=== PATIENT | male | born 2000 | race Caucasian/White ===

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

== ENCOUNTER 2020-09-03 22:09 | Inpatient (IN) | payer OTHER ==
[~2020-09-03] VITALS: Ht 175.3 cm; Wt 72.6 kg
[2020-09-03 22:22] VITALS: Ht 175.3 cm; Wt 72.6 kg
--- NOTE | 2020-09-03 23:50 | NUR ---
PT RESPERATIONS ARE SHALLOW WITH MOMENTS OF APNEIC EPISODES. PT MEDICATED PER MD ORDER SEE EMAR.
[2020-09-04 00:14] LABS: BASOPHIL % 0.5 % (0-2); PLATELET COUNT 268 x10^3mcL (130-400); RED CELL DISTRIBUTION WIDTH 14.4 % (11.5-14.5)
[2020-09-04 00:22] LABS: CALCIUM 8.3 mg/dL (8.5-10.1); CARBON DIOXIDE 27.4 mmol/L (21-32); CHLORIDE SERUM 98 mmol/L (98-107); GFR1 > 60 mL/min; GLUCOSE SERUM 101 mg/dL (74-106); POTASSIUM SERUM 3.6 mmol/L (3.5-5.1); SODIUM SERUM 132 mmol/L (136-145)
[2020-09-04 00:31] LABS: ALBUMIN 3.9 g/dL (3.4-5.0); ALKALINE PHOSPHATASE 66 U/L (46-116); ALT/SGPT 66 U/L (16-63); AST/SGOT 26 U/L (15-37); BILIRUBIN TOTAL 0.2 mg/dL (0.20-1.00); TOTAL PROTEIN, SERUM 7.3 g/dL (6.4-8.2)
[2020-09-04] MEDS ORDERED: LEXAPRO5 M1 (01:56)
[2020-09-04 02:44] LABS: AMPHETAMINE QUAL UR NONE DETECTED (See below)
[2020-09-04 03:03] VITALS: BP 138/65
--- NOTE | 2020-09-04 03:19 | NUR ---
PT RECEIVED FROM ED VIA [facility] AT 02:00 ACCOMPANIED BY EMT AND RN. PT ABLE TO SELF TRANSFER FROM [facility] TO BED AMBUALTING WITH STEADY GAIT. A/OX4, CALM AND COOPERATIVE. PT APPEARS TO HAVE GOOD INSIGHT ON WHAT HAPPENED AND ACKNOWLEDGES IT WAS A POOR DECISION. RESPIRATIONS EVEN, UNLABORED, CTA, RA. PT DENIES SOB, LIGHTHEADEDNESS/DIZZINESS, CHEST PAIN. TELE 7 PLACED, ST HR 108. ABD SOFT AND ROUND, BS ACTIVE, DENIES N/V, LBM 09/03/20, WNL. PT HAS A A GOOD APPETITE - SANDWICH, APPLE SAUCE, PUDDING AND WATER PROVIDED. PT DENIES URINARY ISSUES. SKIN INTACT. PT REPORTS CHRISTIAN. IV RAC 22G PATENT, RUNNING NS@100ML/HR, NO COMPLICATIONS TO SITE. PT EDUCATED [employer] LIGHT, TO USE CALL LIGHT FOR ASSIST OR CONCERNS. ORIENTATION TO UNIT PROVIDED. PT INFORMED OF PLAN OF CARE. PER PT SISTER AWARE OF HOSPITALIZATION, BUT UNSURE IF PARENTS HAVE BEEN TOLD OR NOT THEY [place]. PT DOES NOT WANT THEM TO BE INFORMED AT THIS TIME. BED IN LOWEST POSITION, SIDE RAILS X2, CALL LIGHT WITHIN REACH
--- NOTE | 2020-09-04 05:48 | NUR ---
PT IN BED SLEEPIGN SUPINE. RESOPIRATIONS UNLABORED. NONVERBAL PAIN INDICATORS ABSENT. TELE 7, ST HR 108. IV RAC RUNNING NS@100ML/HR, NO COMPLICATIONS TO SITE. PT C/O CHRISTIAN X 1, TYULENOL ADMISNITERED ORDERED, EFFECTIVE. PT PROVIDED WITH NIGHT TIME SNACK. NO C/O DISCOMFORT, N/V, SOB, DIZZINESS, DISCOMFORT OR CHEST PAIN DURING SHIFT. ALL NEEDS MET. BED IN LOWEST POSITION, SIDE RIALS X 2, [facility]
[2020-09-04 05:55] VITALS: BP 113/53
[2020-09-04 06:38] LABS: BASOPHIL % 0.4 % (0-2); PLATELET COUNT 257 x10^3mcL (130-400); RED CELL DISTRIBUTION WIDTH 14.5 % (11.5-14.5)
[2020-09-04 07:06] LABS: CALCIUM 8.4 mg/dL (8.5-10.1); CARBON DIOXIDE 29.9 mmol/L (21-32); CHLORIDE SERUM 98 mmol/L (98-107); CREATININE SERUM 0.9 mg/dL (0.7-1.3); GFR1 > 60 mL/min; GLUCOSE SERUM 104 mg/dL (74-106); SODIUM SERUM 133 mmol/L (136-145)
--- NOTE | 2020-09-04 07:40 | NUR ---
RECIEVED REPORT FROM [facility] NURSE. PATIENT IS CURRENTLY AWAKE ALERT AND ORIENTED X 4. PATIENT IS PLEASENT AND STATES THAT HE IS NOT IN ANY DISTRESS AT THIS TIME. IV IS TO THE RAC AND IS CURRENTLY INFUSING NS AT 100cc/HOUR. SAFETY PRECAUTIONS IN PLACE. CALL LIGHT WITHIN REACH. WILL CONTINUE TO PROVIDE CARE FOR PATIENT.
[2020-09-04 07:59] VITALS: BP 123/68
[2020-09-04 11:44] VITALS: BP 131/77
--- NOTE | 2020-09-04 14:35 | NUR ---
PATIENT HAS DECIDED TO LEAVE AMA DESPITE EDUCATION PROVIDED BY DR. GARCIA REGARDING IMPORTANCE OF FOLLOWING THROUGH WITH TREATMENT PLAN. DESPITE THIS PATIENT INSISTS THAT HE WANTS TO LEAVE. AMA PAPERWORK SIGNED BY BOTH PATIENT AND PHYSICIAN AND PLACED IN CHART. PATIENT STATES THAT HIS FRIEND IS HERE TO PICK HIM UP. PATIENT GIVEN CLOTHES FROM HOSPITAL DONATION CLOSET. PATIENT ESCORTED TO LOBBY BY FUR DRESSER. IV CATH REMOVED INTACT IN PREPARATION FOR DISCHARGE.
== END 2020-09-04 14:48 | disposition left against medical advice (07) | DRG 812 ==
LOC: ED 22:09 → DU 09-04 00:51
PROVIDERS: Emergency Medicine; Radiology Diagnostic Radiology; ADMIT Student in an Organized Health Care Education/Training Program; ATTEND Student in an Organized Health Care Education/Training Program
DX: T40.2X1A Poisoning by other opioids, accidental (unintentional), initial encounter (principal); J96.01 Acute respiratory failure with hypoxia; J96.02 Acute respiratory failure with hypercapnia; G92 Toxic encephalopathy; F41.9 Anxiety disorder, unspecified; J45.909 Unspecified asthma, uncomplicated; Z20.828 Contact with and (suspected) exposure to other viral communicable diseases; Z53.29 Procedure and treatment not carried out because of patient's decision for other reasons; E87.1 Hypo-osmolality and hyponatremia; F12.10 Cannabis abuse, uncomplicated; Y92.89 Other specified places as the place of occurrence of the external cause; Z88.0 Allergy status to penicillin; Z79.899 Other long term (current) drug therapy
CPT/HCPCS: 36600; G0378; G0480; J2310; J7030; Q0092